=== PATIENT | female | born 1995 | race Caucasian/White ===

== ENCOUNTER 2021-01-25 16:08 | Emergency (ER) | payer BC ==
--- NOTE | 2021-01-25 16:39 | EDM.PDOC ---
ED HPI GENERAL MEDICAL PROBLEM - General Chief Complaint: Lower Extremity Injury/Pain Stated Complaint: RT ANKLE PAIN Time Seen by Provider: 01/25/21 16:38 Source of Information: Reports: Patient History Limitations: Reports: No Limitations - History of Present Illness INITIAL COMMENTS - FREE TEXT/NARRATIVE: 25-year-old female presents to the ED with an acute inversion injury to her right ankle. She states she missed a stair coming down and inadvertently inverted her right ankle which did cause her to fall to the floor. Since that time she has not been able to weight-bear on the right ankle. Injury occurred approximate hour an hour before coming to the ED. She denies any other injuries. Onset: Today, Sudden Onset Date: 01/25/21 Onset Time: 15:30 Duration: Hour(s):, Getting Worse Location: Reports: Lower Extremity, Right Quality: Reports: Ache (Marked swelling right lateral ankle), Throbbing Severity: Moderate Improves with: Reports: Rest Worsens with: Reports: Other (Any attempt to move the ankle I dorsiflex plantarflex abduct or abduct the ankle causes increased pain. Unable to walk more than 1 step on the ankle.) Context: Reports: Trauma (Inversion injury while going downstairs). Denies: Activity, Exercise, Lifting, Sick Contact, Other Associated Symptoms: Reports: No Other Symptoms ( right ankle). 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: Reports: Other (see below) (None.) - Related Data Allergies Allergy/AdvReac Type Severity Reaction Status Date / Time No Known Allergies Allergy Verified 01/25/21 16:20 Home Meds: Home Meds Levothyroxine 112 mcg PO ACBREAKFAST 01/25/21 [History] Past Medical History Gastrointestinal History: Reports: GERD, Hiatal Hernia Endocrine/Metabolic History: Reports: Hypothyroidism (On levothyroxine 112 mcg daily), Obesity/BMI 30+ - Infectious Disease History Infectious Disease History: Reports: Novel Coronavirus Other Infectious Disease History: january 2021 Social & Family History - Tobacco Use Tobacco Use Status *Q: Never Tobacco User - Recreational Drug Use Recreational Drug Use: No - Living Situation & Occupation Living situation: Reports: Occupation: Employed Review of Systems - Review of Systems Review Of Systems: See Below Constitutional: Reports: No Symptoms Eyes: Reports: Glasses Ears: Reports: No Symptoms Nose: Reports: No Symptoms Mouth/Throat: Reports: No Symptoms Respiratory: Reports: No Symptoms Cardiovascular: Reports: No Symptoms GI/Abdominal: Reports: No Symptoms Genitourinary: Reports: No Symptoms Musculoskeletal: Reports: Other (Right ankle pain) Skin: Reports: No Symptoms Neurological: Reports: No Symptoms Psychiatric: Reports: No Symptoms ED EXAM, GENERAL - Physical Exam Exam: See Below Exam Limited By: No Limitations General Appearance: Alert, WD/WN, No Apparent Distress, Other (Temperature is 37.1 degrees. Heart rate 110 and sinus. Respiratory is 18 with O2 sats 100% room air BP 143/82) Peripheral Pulses: 3+: Posterior Tibial (L), Posterior Tibial (R), Dorsalis Pedis (L), Dorsalis Pedis (R) Extremities: Other (Examination was limited to the right lower extremity. There is no pain on firm compression of the proximal fibular head. There is no pain in the ankle at firm compression of the mid tib-fib. There is marked swelling of the lateral ankle and inability to abduct adduct or dorsiflex without pain. ) Neurological: Alert, Oriented, CN II-XII Intact, Normal Cognition Psychiatric: Normal Affect, Normal Mood Skin Exam: Warm, Dry, Intact, Normal Color Course - Vital Signs Last Recorded V/S: Last Vital Signs Temp 37.1 C 01/25/21 16:18 Pulse 110 H 01/25/21 16:18 Resp 18 01/25/21 16:18 BP 143/82 H 01/25/21 16:18 Pulse Ox 100 01/25/21 16:18 - Orders/Labs/Meds Orders: Active Orders 24 hr Category Date Time Status Durable Medical Equipment for Discharge [DME for Oth 01/25/21 17:08 Ordered Discharge] [COMM] Stat - Radiology Interpretation Free Text/Narrative:: 25-year-old female presents to the ED with an inversion injury to her right ankl e. Injury occurred about 2 and half hours prior to coming to the ED. There is marked swelling of the lateral ankle. The medial or deltoid ligament is intact. She has pain with dorsiflexion plantar flexion abduction and abduction of the ankle. Plan three-view x-ray of the ankle to be obtained. - Re-Assessments/Exams Free Text/Narrative Re-Assessment/Exam: 01/25/21 17:10: 3 view x-ray of the right ankle is within normal limits showing no bony injuries. Plan patient will be placed in an Miguel Angel wrap which should be left on overnight tonight. Then off at night and on during the day for the next 10 to 14 days. She will be nonweightbearing crutch walking for the next 5 to 6 days until able to walk comfortably without pain. Elevate the foot as much as possible. Ice pack to the area 1/2-hour out of every 4 hours for the next 2 to 3 days. Motrin 600 mg every 6 hours needed for pain relief. She is to follow- up with personal care physician if not completely back to normal in 14 days time. Departure - Departure Time of Disposition: 17:08 Disposition: Home, Self-Care 01 Condition: Fair Clinical Impression: Sprain of ligament of right ankle Qualifiers: Encounter type: initial encounter Qualified Code(s): S93.401A - Sprain of unspecified ligament of right ankle, initial encounter - Discharge Information *PRESCRIPTION DRUG MONITORING PROGRAM REVIEWED*: Not Applicable *COPY OF PRESCRIPTION DRUG MONITORING REPORT IN PATIENT SIMI: Not Applicable Instructions: Crutch Use, Adult, [id number], Ankle Sprain, [id number] Referrals: Delaney Aguilar NP [Primary Care Provider] - Forms: ED Department Discharge Additional Instructions: Evaluation in the ED today in regards to inversion injury to the Rt ankle that occurred when you missed a stair today. Marked swelling appreciated lateral ankle. X-rays of the ankle reveal no bony injuries. Ligaments have been strained. Treatment is rest, ice pack to the area for 1/2 hr out of every 4hrs today and tomorrow. Non weight bearing, crutch walking for the next 5-6 days --until able to walk with minimal pain. Motrin 600mg every 6hrs as needed for pain. expect this injury to take 12-14 days to heal. MIGUEL ANGEL wrap on during the day and off at night until walking perfectly normal. If not back to normal in 14 days you should be seen again. Sepsis Event Note (ED) - Evaluation Sepsis Screening Result: No Definite Risk - Focused Exam Vital Signs: Vital Signs Temp Pulse Resp BP Pulse Ox 01/25/21 16:18 37.1 C 110 H 18 143/82 H 100 - My Orders Last 24 Hours: My Active Orders 01/25/21 17:08 Durable Medical Equipment for Discharge [DME for Discharge] [COMM] Stat - Assessment/Plan Last 24 Hours: My Active Orders 01/25/21 17:08 Durable Medical Equipment for Discharge [DME for Discharge] [COMM] Stat
--- NOTE | 2021-01-25 17:12 | CR ---
Right ankle: 4 views of the right ankle were obtained. Diffuse soft tissue swelling is identified. Ankle mortise is symmetric. No acute fracture, dislocation or other bony abnormality is seen. Impression: 1. Diffuse soft tissue swelling. 2. No acute osseous abnormality is appreciated. Diagnostic code #2
== END 2021-01-25 17:45 | disposition home or self-care (01) ==
LOC: JD.ED 16:08
DX: S93.401A Sprain of unspecified ligament of right ankle, initial encounter (principal); E03.9 Hypothyroidism, unspecified; E66.9 Obesity, unspecified; Z68.34 Body mass index [BMI] 34.0-34.9, adult; W10.9XXA Fall (on) (from) unspecified stairs and steps, initial encounter
CPT/HCPCS: 73610-26-RT; 73610-RT; 99282; 99283